=== PATIENT | female | born 1940 | race Caucasian/White ===

== ENCOUNTER → 2021-08-16 | Outpatient (CLI) | payer MEDICARE, OTHER | LOC: MRI 12:51 | DX: C20 Malignant neoplasm of rectum (principal) | CPT/HCPCS: 72197; A9577 ==

== ENCOUNTER → 2021-08-17 | Outpatient (CLI) | payer MEDICARE, OTHER | LOC: CT 12:12 | DX: C20 Malignant neoplasm of rectum (principal) | CPT/HCPCS: Q9967 ==

== ENCOUNTER → 2021-08-31 | Day surgery (SDC) | payer MEDICARE, OTHER ==
[~2021-08-31] MED LIST: COLACE100 MG PO; COZAAR50 MG PO; CRESTOR20 MG PO; DILTIAZEM ER120 M1 PO; ETHINYL ESTRADIOL PO; FOSAMAX70 MG PO; GRALISE1 EAC1 PO; KLONOPIN1 MG PO; MACROBID 100 M100 MG PO; NORETHINDRONE PO; PLAVIX75 MG PO; REGLAN10 MG PO; SINEMET 25-1001 EACH PO; VITAMIN D350 MC3 PO
== END | disposition home or self-care (01) ==
LOC: OR 05:29
DX: C21.0 Malignant neoplasm of anus, unspecified (principal); I10 Essential (primary) hypertension; E78.5 Hyperlipidemia, unspecified; I25.10 Atherosclerotic heart disease of native coronary artery without angina pectoris; Z20.822 Contact with and (suspected) exposure to COVID-19; Z88.8 Allergy status to other drugs, medicaments and biological substances; Z79.02 Long term (current) use of antithrombotics/antiplatelets; Z90.710 Acquired absence of both cervix and uterus
CPT/HCPCS: 71045; 77001; C1769; C1788; J0690; J1642; J2001; J2405; J2704; J3010; J7030; J7040; J7120

== ENCOUNTER 2021-10-17 23:23 | Inpatient (IN) | payer MEDICARE, OTHER ==
[~2021-10-17] VITALS: Ht 162.6 cm; Wt 77.6 kg
[~2021-10-17 23:23] MED LIST changes: -DILTIAZEM ER120 M1 PO; +GABAPENTIN100 MG PO; -GRALISE1 EAC1 PO
[2021-10-18 00:25] LABS: RED BLOOD COUNT 2.97 M/UL (4.00-5.10)
[2021-10-18 00:48] LABS: BUN/CREATININE RATIO 19 (0-10)
[2021-10-18 00:50] LABS: WHITE BLOOD COUNT 1.2 K/UL (4.5-11.0)
[2021-10-18] MEDS ORDERED: REGLAN10 MG PO (06:23)
[2021-10-18] MEDS ORDERED: BENZTROPINE ME0.5 MG PO (11:18)
[2021-10-18] MEDS ORDERED: ONDANSETRON HCL8 MG PO (11:19)
[2021-10-18] MEDS ORDERED: LORATADINE10 MG PO (11:20)
[2021-10-19 06:16] LABS: HEMOGLOBIN 8.4 gm/dl (12.3-15.3); RED BLOOD COUNT 2.77 M/UL (4.00-5.10)
[2021-10-19 06:20] LABS: WHITE BLOOD COUNT 0.8 K/UL (4.5-11.0)
[2021-10-19 07:10] LABS: BUN/CREATININE RATIO 14 (0-10)
[2021-10-19 10:54] LABS: HEMOGLOBIN 8.9 gm/dl (12.3-15.3); RED BLOOD COUNT 2.93 M/UL (4.00-5.10)
[2021-10-19 11:12] LABS: WHITE BLOOD COUNT 0.8 K/UL (4.5-11.0)
[2021-10-20 04:41] LABS: HEMOGLOBIN 9.3 gm/dl (12.3-15.3); RED BLOOD COUNT 3.06 M/UL (4.00-5.10)
[2021-10-20 05:05] LABS: BUN/CREATININE RATIO 16 (0-10)
[2021-10-20] MEDS ORDERED: DILTIAZEM ER120 M1 PO (06:27)
[2021-10-21 12:01] LABS: HEMOGLOBIN 8.1 gm/dl (12.3-15.3)
[2021-10-21 12:02] LABS: RED BLOOD COUNT 2.64 M/UL (4.00-5.10)
[2021-10-21 12:04] LABS: WHITE BLOOD COUNT 1.3 K/UL (4.5-11.0)
[2021-10-22 02:50] LABS: HEMOGLOBIN 8.2 gm/dl (12.3-15.3); RED BLOOD COUNT 2.7 M/UL (4.00-5.10)
[2021-10-22 03:00] LABS: WHITE BLOOD COUNT 2.1 K/UL (4.5-11.0)
[2021-10-22 03:27] LABS: BUN/CREATININE RATIO 13 (0-10)
--- NOTE | 2021-10-22 17:29 | NUR ---
NOTICED THE PT HAD SOME FACIAL EDEMA DURING MY ROUNDING AT 1500, CALLED , SHE D/C'D PTS FLUIDS.
[2021-10-23 06:56] LABS: BUN/CREATININE RATIO 9 (0-10)
[2021-10-23 07:31] LABS: HEMOGLOBIN 8.5 gm/dl (12.3-15.3); RED BLOOD COUNT 2.76 M/UL (4.00-5.10)
[2021-10-23] MEDS ORDERED: CEFUROXIME250 MG PO (15:54)
[2021-10-23] MEDS ORDERED: LOPRESSOR 25 MG25 MG PO (15:54)
[2021-10-23] MEDS ORDERED: ACETAMINOPHEN325 MG PO (15:54)
[2021-10-23] MEDS ORDERED: FLUCONAZOLE100 MG PO (15:54)
[2021-10-23] MEDS ORDERED: ACYCLOVIR200 MG PO (15:54)
[2021-10-23] MEDS ORDERED: ONDANSETRON HCL4 MG PO (17:13)
[2021-10-24 15:39] LABS: WHITE BLOOD COUNT 7.1 K/UL (4.5-11.0)
[2021-10-24] MEDS ORDERED: ACYCLOVIR200 MG PO (18:36)
[2021-10-24] MEDS ORDERED: CEFUROXIME250 MG PO (18:38)
[2021-10-24] MEDS ORDERED: FLUCONAZOLE100 MG PO (18:39)
[2021-10-24] MEDS ORDERED: LOPRESSOR 25 MG25 MG PO (18:41)
[2021-10-25] MEDS ORDERED: ONDANSETRON HCL4 MG PO (18:42)
== END 2021-10-23 22:00 | disposition home health service (06) | DRG 809 ==
LOC: ER1 23:23 → MED SURG 4 10-18 03:08 → CDU 10-18 03:08 → MED SURG 4 10-18 04:54
PROVIDERS: Family Medicine; Internal Medicine; ADMIT Internal Medicine
DX: D70.9 Neutropenia, unspecified (principal); C21.0 Malignant neoplasm of anus, unspecified; N30.00 Acute cystitis without hematuria; Z20.822 Contact with and (suspected) exposure to COVID-19; M54.9 Dorsalgia, unspecified; G89.29 Other chronic pain; F41.9 Anxiety disorder, unspecified; D61.810 Antineoplastic chemotherapy induced pancytopenia; R50.81 Fever presenting with conditions classified elsewhere; E87.6 Hypokalemia; T45.1X5A Adverse effect of antineoplastic and immunosuppressive drugs, initial encounter; G20 Parkinson's disease; I10 Essential (primary) hypertension; Z82.49 Family history of ischemic heart disease and other diseases of the circulatory system; Z79.899 Other long term (current) drug therapy; Z88.8 Allergy status to other drugs, medicaments and biological substances; Z85.42 Personal history of malignant neoplasm of other parts of uterus; Z90.710 Acquired absence of both cervix and uterus; Z80.0 Family history of malignant neoplasm of digestive organs
CPT/HCPCS: 36415; 71045; 80048; 80053; 80202; 81001; 82550; 82553; 83605; 83735; 83880; 84132; 84439; 84443; 84484; 85007; 85025; 85027; 85610; 87040; 87077; 87086; 87186; 93005; 94760; 96365; 96366; 96375; 99285; J1442; J2185; J2405; J2543; J2550; J3370; J7030; J7070; U0002

== ENCOUNTER 2021-12-18 14:20 | Inpatient (IN) | payer MEDICARE, OTHER ==
[~2021-12-18] VITALS: Ht 162.6 cm; Wt 78.5 kg
[~2021-12-18 14:20] MED LIST changes: +ACETAMINOPHEN325 MG PO; +ACYCLOVIR200 MG PO; +BENZTROPINE ME0.5 MG PO; +CEFUROXIME250 MG PO; +DILTIAZEM ER120 M1 PO; +FLUCONAZOLE100 MG PO; +LOPRESSOR 25 MG25 MG PO; +LORATADINE10 MG PO; +ONDANSETRON HCL4 MG PO; +ONDANSETRON HCL8 MG PO
[2021-12-18 15:14] LABS: HEMOGLOBIN 11.5 gm/dl (12.3-15.3); RED BLOOD COUNT 3.59 M/UL (4.00-5.10); WHITE BLOOD COUNT 11.8 K/UL (4.5-11.0)
[2021-12-18 15:50] LABS: BUN/CREATININE RATIO 6 (0-10)
[2021-12-18] MEDS ORDERED: PROMETHAZINE HC25 M1 PO (18:02)
[2021-12-18] MEDS ORDERED: CLOPIDOGREL75 MG PO (18:02)
[2021-12-18] MEDS ORDERED: SUCRALFATE1 GM PO (18:02)
[2021-12-18] MEDS ORDERED: ALENDRONATE SOD70 MG PO (18:02)
[2021-12-18] MEDS ORDERED: PROTONIX 40 MG40 M1 PO (18:03)
[2021-12-18] MEDS ORDERED: METOPROLOL TART25 MG PO (18:04)
[2021-12-18] MEDS ORDERED: BENZTROPINE ME0.5 MG PO (18:04)
[2021-12-18 19:06] LABS: ADENOVIRUS F 40/41 Not Detected (Negative); ASTROVIRUS Not Detected (Negative); CAMPYLOBACTER Not Detected (Negative); CRYPTOSPORIDIUM Not Detected (Negative); E.COLI 0157 Not Detected (Negative); ENTAMOEBA HISTOLYTICA Not Detected (Negative); ENTEROAGGREGATIVE E.COLI (EAEC Not Detected (Negative); ENTEROPATHOGENIC E.COLI (EPEC) Not Detected (Negative); ENTEROTOXIGENIC E.COLI (ETEC) Not Detected (Negative); GIARDIA LAMBLIA Not Detected (Negative); NOROVIRUS GI/GII Not Detected (Negative); PLESIOMONAS SHIGELLOIDES Not Detected (Negative); ROTOVIRUS A Not Detected (Negative); SALMONELLA Not Detected (Negative); SAPOVIRUS Not Detected (Negative); SHIG/ENTEROINVAS.ECOLI (EIEC) Not Detected (Negative); SHIGA-LIK TOX.PRO.E.COLI (STEC Not Detected (Negative); VIBRIO Not Detected (Negative); VIBRIO CHOLERAE Not Detected (Negative); YERSINIA ENTEROCOLITICA Not Detected (Negative)
[2021-12-19 03:29] LABS: HEMOGLOBIN 9.2 gm/dl (12.3-15.3); RED BLOOD COUNT 2.83 M/UL (4.00-5.10); WHITE BLOOD COUNT 7.6 K/UL (4.5-11.0)
[2021-12-19 04:08] LABS: BUN/CREATININE RATIO 6 (0-10)
[2021-12-19 08:24] LABS: CLOSTRIDIUM DIFFICILE TOX A/B Not Detected (Negative)
--- NOTE | 2021-12-19 11:15 | NUR ---
Spoke to Dr. Cross about patients diet, was told to give patient clear liquids until results of abdonmen ultrasound are back.
--- NOTE | 2021-12-19 13:33 | NUR ---
Called Dr. Cross to let her know the results of the abdomen ultrasound. Dr. Cross said to put in a condult for general surgery.
--- NOTE | 2021-12-19 14:53 | NUR ---
Spoke with Dr. Cross about patients critical potassium of 2.4. Dr. Cross to put in order for potassium replacement.
[2021-12-20 04:56] LABS: BUN/CREATININE RATIO 5 (0-10)
[2021-12-20 06:42] LABS: HEMOGLOBIN 9.4 gm/dl (12.3-15.3); RED BLOOD COUNT 2.91 M/UL (4.00-5.10)
[2021-12-20 06:48] LABS: WHITE BLOOD COUNT 5.2 K/UL (4.5-11.0)
[2021-12-21 06:35] LABS: HEMOGLOBIN 8.4 gm/dl (12.3-15.3); RED BLOOD COUNT 2.63 M/UL (4.00-5.10); WHITE BLOOD COUNT 4.9 K/UL (4.5-11.0)
[2021-12-21 06:53] LABS: BUN/CREATININE RATIO 7 (0-10)
[2021-12-21] MEDS ORDERED: K-TAB ER20 MEQ PO (13:02)
[2021-12-21] MEDS ORDERED: AMOX TR-K CLV1 EAC4 PO (13:02)
[2021-12-21] MEDS ORDERED: PROBIOTIC1 EACH PO (13:04)
== END 2021-12-21 23:26 | disposition home or self-care (01) | DRG 391 ==
LOC: ER1 14:20 → M/S 17:04 → CDU 17:04 → M/S 18:14
PROVIDERS: Emergency Medicine; Physician Assistant Medical; ADMIT Internal Medicine
DX: R11.2 Nausea with vomiting, unspecified (principal); J69.0 Pneumonitis due to inhalation of food and vomit; Z20.822 Contact with and (suspected) exposure to COVID-19; E87.6 Hypokalemia; E83.42 Hypomagnesemia; K82.8 Other specified diseases of gallbladder; I10 Essential (primary) hypertension; E78.5 Hyperlipidemia, unspecified; D64.9 Anemia, unspecified; H54.7 Unspecified visual loss; G20 Parkinson's disease; T45.1X5A Adverse effect of antineoplastic and immunosuppressive drugs, initial encounter; K76.0 Fatty (change of) liver, not elsewhere classified; Z85.040 Personal history of malignant carcinoid tumor of rectum; Z90.710 Acquired absence of both cervix and uterus; Z82.49 Family history of ischemic heart disease and other diseases of the circulatory system
CPT/HCPCS: 0240U; 36415; 71045; 76705; 80048; 80053; 81001; 82550; 82553; 83605; 83690; 83735; 84132; 84484; 85025; 85027; 87040; 87507; 93005; 96374; 96375; 97110-GP-CQ; 97162; 97166; 97530-GP-CQ; 99285; C9113; J0696; J1335; J1650; J2405; J2550; J2997; J3475; J3480; Q9967

== ENCOUNTER 2022-02-01 21:42 | Inpatient (IN) | payer MEDICARE, OTHER ==
[~2022-02-01] VITALS: Ht 165.1 cm; Wt 60.8 kg
[~2022-02-01 21:42] MED LIST changes: +ALENDRONATE SOD70 MG PO; +AMOX TR-K CLV1 EAC4 PO; +CLOPIDOGREL75 MG PO; +K-TAB ER20 MEQ PO; +METOPROLOL TART25 MG PO; +PROBIOTIC1 EACH PO; +PROMETHAZINE HC25 M1 PO; +PROTONIX 40 MG40 M1 PO; +SUCRALFATE1 GM PO
[2022-02-01] MEDS ORDERED: HYDROCODON-ACE1 EAC4 PO (22:23)
[2022-02-01 22:35] LABS: HEMOGLOBIN 7.9 gm/dl (12.3-15.3); RED BLOOD COUNT 2.47 M/UL (4.00-5.10); WHITE BLOOD COUNT 2.2 K/UL (4.5-11.0)
[2022-02-01 22:44] LABS: BUN/CREATININE RATIO 37 (0-10)
[2022-02-02] MEDS ORDERED: PLAVIX 75 MG TA75 MG PO (02:54)
[2022-02-02 07:56] LABS: RED BLOOD COUNT 2.08 M/UL (4.00-5.10)
[2022-02-02 08:01] LABS: HEMOGLOBIN 6.5 gm/dl (12.3-15.3)
[2022-02-02 08:02] LABS: WHITE BLOOD COUNT 1.3 K/UL (4.5-11.0)
[2022-02-02 08:08] LABS: BUN/CREATININE RATIO 46 (0-10)
--- NOTE | 2022-02-02 13:46 | NUR ---
DR HIGUERA AND DR DIETRICH AWARE OF PT'S WBC 1.3 AND HGB OF HGB OF 6.5. ONE UNIT BLOOD ORDERED PER DR HIGUREA.
--- NOTE | 2022-02-02 15:00 | NUR ---
UNIT NUMBER ONE BLOOD STARTED, NG TUBE TO LEFT NARE GREEN BILE DRAINAGE NOTED IN TUBING AND NOSE PIECE SECURED PT TOLERATED WELL. AWAITING X RAY TO CONFIRM PLACEMENT.
--- NOTE | 2022-02-03 02:54 | NUR ---
APPROX 0013 SPOKE WITH . PT VERY WET SOUNDING IN LUNGS AND GRUNTING 02 DECREASED 85% ON NC @2L. OUTPUT 300ML. RESPITORY IN ROOM AND OTHER STAFF. CHECKING BLOOD SUGAR 119. PT PLACED ON 15 HFNC AND STATING 100%. PER MD CARDOSO FLUIDS NO BLOOD AND FEEDINGS AT THIS TIME, ADMINSTER LASIX 40 MG NOW AND STAT CHEST XRAY. WILL CONTINUE TO MONITOR PT. APPROX 0125 PT IS NOW ON 8L HFNC AND STATING 98%
[2022-02-03 07:42] LABS: HEMOGLOBIN 11.5 gm/dl (12.3-15.3); RED BLOOD COUNT 3.86 M/UL (4.00-5.10); WHITE BLOOD COUNT 2.4 K/UL (4.5-11.0)
[2022-02-03 08:38] LABS: BUN/CREATININE RATIO 25 (0-10)
--- NOTE | 2022-02-03 18:02 | NUR ---
PT HAS RESTED TODAY AFTER ORDER RECEIVED AND SUCTIONING DEEP WITH A COPIUOS AMOUNT OF SECRETIONS. SHE ALSO WAS ABLE TO GET RELIEF AFTER TORADOL GIVEN NO FURTHER GRUNTIONG. FAMILY AT BEDSIDE AND EDUCATED ON NEUTROPENIC PRECAUTIONS, DR DIETRICH ASKED ONLY 2 VISITORS THERE ARE THREE AT THE BEDSIDE AT THIS TIME.
[2022-02-04 06:59] LABS: BUN/CREATININE RATIO 42 (0-10)
[2022-02-04 07:26] LABS: HEMOGLOBIN 9.6 gm/dl (12.3-15.3); WHITE BLOOD COUNT 2.1 K/UL (4.5-11.0)
[2022-02-04 07:38] LABS: RED BLOOD COUNT 3.13 M/UL (4.00-5.10)
--- NOTE | 2022-02-04 11:40 | NUR ---
AT APPROXIMATELY 11am, 2 FAMILY MEMBERS ENTERED THE PATIENTS ROOM. AROUND 1110 ANOTHER FAMILY MEMBER CAME TO NURSES STATION ASKING FOR GOWNS TO VISIT THE PATIENT. THIS PRODUCT SUPPORT SALES REPRESENTATIVE INFORMED THE FAMILY MEMBER THAT WITH THE PATIENTS CONDITION, IT WASN'T SAFE FOR HER TO HAVE THAT MANY PEOPLE IN THE ROOM. THE FAMILY MEMBER STATED "THE ROOM WAS FULL YESTERDAY SO I'M GOING IN." EDUCATED THE FAMILY MEMBER ON PROPER PRECAUTIONS RELATED TO THE PATIENTS CONDITION.
[2022-02-05 06:55] LABS: HEMOGLOBIN 9.8 gm/dl (12.3-15.3); RED BLOOD COUNT 3.12 M/UL (4.00-5.10); WHITE BLOOD COUNT 2.3 K/UL (4.5-11.0)
[2022-02-05 07:21] LABS: BUN/CREATININE RATIO 51 (0-10)
--- NOTE | 2022-02-05 09:32 | NUR ---
NOTIFIED MD OF LOW TEMP OF 92.8 AT 0830. MD WADE AND KARL FERNÁNDEZ APPLIED AT HIGH TEMP. TEMPERATURE RECHECK AT 0930 AND TEMPERATURE IS UP TO 96.1 F BY EAR.
--- NOTE | 2022-02-05 17:53 | NUR ---
PT TEMP RODRIGO TO 98.0 AT 1753. PASTOR FERNÁNDEZ REMOVED.
--- NOTE | 2022-02-06 04:20 | NUR ---
ENTERED TO CHECK PT'S BLOOD PRESSURE AT 2 AM, PT WAS FOUND HYPOTENSIVE WITH A TWITCH IN HER NECK THAT APPEARED TO MAKE HER HEAD SHAKE. NOTIFIED MD ABOUT HYPOTENSION AND TWITCH, TO WHICH HE ORDERED A 1L BOLUS. BOLUS WAS STARTED AND THERE WAS VERY LITTLE IMPROVEMENT IN BLOOD PRESSURE. MD WAS CALLED AGAIN AND NOTIFIED ABOUT PT'S STATUS. MD ORDERED A TRANSFER TO PROGRESSIVE CARE AND START LEVOPHED. LEVOPHED WAS STARTED ON THE FLOOR PRIOR TO MOVING TO PCU BECAUSE PRIMARY RN WAS QUALIFIED TO TAKE IT AND HOUSE APPROVED. PT WAS MOVED TO PCU BY PRIMARY RN AND RESERVATIONIST, ON MONITORING. BLOOD PRESSURE SHOWED IMPROVEMENT BY THE TIME PT WAS ON PCU. THE PRIMARY NURSE AND THE RN ON THE FLOOR WHO WAS GOING TO TAKE THE PT WERE SITUATING THE PT AND PREPARING TO CALL AND ALERT FAMILY OF THE CHANGE, PT APPEARED TO BECOME ALERT FOR A MOMENT, EYES OPENING AND SITTING UP SLIGHTLY BEFORE SHAKING DRASTICALLY. MANAGER OF HOSPITAL WAS CALLED IMMEDIATLY, PATIENT APPEARED TO BE HAVING A SEIZURE. MD WAS ALREADY ON THE FLOOR WHEN MANAGER OF HOSPITAL WAS CALLED. MD ASSESSED PT AND SHE APPEARED TO STOP BREATHING. NO PULSE WAS FOUND, PT IN [place] PER MD. COMPRESSIONS STARTED. PRIMARY RN WENT TO CALL FAMILY THE PT WAS CODED FOR SEVEN MINUTES. DURING THE CODE, COMPRESSIONS WERE STARTED AT 0254, EPINEPHRIN WAS PUSHED PER ACLS PROTOCOL AT 0255 AND PT WAS PUT ON THE CRASH CART. PT WAS FOUND IN [place] AT 0257 AND DEFIBRILLATED. COMPRESSIONS STARTED BACK, ANOTHER EPI WAS GIVEN, AND PULSE WAS RESTORED, FOUND BY DOPPLER. AT THE TIME, THE NOCTURNAL HOSPITALIST WAS ON THE PHONE WITH THE DAUGHTER, GUY, AND THEY MADE THE CALL TO MAKE THE PT A DNR. ORDERS WERE CHANGED IN THE COMPUTER AND PT WAS MONITORED UNTIL TIME OF AT 0313. PATIENT LOST PULSE AND WENT BACK INTO [place]. FAMILY ARRIVED AT BEDSIDE AT 0350.
== END 2022-02-06 03:13 | disposition expired | DRG 808 ==
LOC: ER1 21:42 → MED SURG 4 02-02 01:33 → CDU 02-02 01:33 → MED SURG 4 02-02 02:40 → PROG CARE 02-06 02:44
PROVIDERS: Internal Medicine; Student in an Organized Health Care Education/Training Program; ADMIT Internal Medicine
PROC: 3E033XZ Introduction of Vasopressor into Peripheral Vein, Percutaneous Approach (ICD-10-PCS; 2022-02-02)
PROC: 30233N1 Transfusion of Nonautologous Red Blood Cells into Peripheral Vein, Percutaneous Approach (ICD-10-PCS; 2022-02-02)
PROC: 30233R1 Transfusion of Nonautologous Platelets into Peripheral Vein, Percutaneous Approach (ICD-10-PCS; 2022-02-02)
PROC: 5A12012 Performance of Cardiac Output, Single, Manual (ICD-10-PCS; principal; 2022-02-06)
PROC: 5A2204Z Restoration of Cardiac Rhythm, Single (ICD-10-PCS; 2022-02-06)
DX: D61.818 Other pancytopenia (principal); E43 Unspecified severe protein-calorie malnutrition; J69.0 Pneumonitis due to inhalation of food and vomit; G93.41 Metabolic encephalopathy; J96.01 Acute respiratory failure with hypoxia; E87.0 Hyperosmolality and hypernatremia; N39.0 Urinary tract infection, site not specified; Z66 Do not resuscitate; I10 Essential (primary) hypertension; G20 Parkinson's disease; H54.7 Unspecified visual loss; D72.819 Decreased white blood cell count, unspecified; E86.0 Dehydration; E78.5 Hyperlipidemia, unspecified; D69.6 Thrombocytopenia, unspecified; E87.6 Hypokalemia; M54.9 Dorsalgia, unspecified; G89.29 Other chronic pain; L89.152 Pressure ulcer of sacral region, stage 2; B96.89 Other specified bacterial agents as the cause of diseases classified elsewhere; L89.621 Pressure ulcer of left heel, stage 1; Z92.21 Personal history of antineoplastic chemotherapy; Z90.710 Acquired absence of both cervix and uterus; Z82.49 Family history of ischemic heart disease and other diseases of the circulatory system; Z88.8 Allergy status to other drugs, medicaments and biological substances; Z92.3 Personal history of irradiation; I49.01 Ventricular fibrillation; Z79.899 Other long term (current) drug therapy; Z85.828 Personal history of other malignant neoplasm of skin
CPT/HCPCS: 36415; 36600; 70450; 71045; 80048; 80053; 81001; 82140; 82533; 82550; 82553; 82607; 82746; 82803; 82962; 83605; 83735; 83880; 84439; 84443; 84484; 85025; 86140; 86850; 86900; 86901; 86920; 87040; 87077; 87086; 87186; 92950; 93005; 94760; 99285; A6212; J1335; J1885; J1940; J3480; J7040; J7050; P9016; P9035; P9037; Q9967; U0002